=== PATIENT | male | born 1980 | race Caucasian/White ===

== ENCOUNTER 2020-01-24 11:00 | Emergency (ER) | payer SELFPAY ==
[~2020-01-24] VITALS: Ht 182.9 cm; Wt 72.6 kg
[2020-01-24 12:01] VITALS: BP 136/92
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
== END 2020-01-24 12:00 | disposition left against medical advice (07) ==
LOC: EDBD 11:00 → EMR 11:35
DX: Z53.21 Procedure and treatment not carried out due to patient leaving prior to being seen by health care provider (principal)